=== PATIENT | male | born 1995 | race African-American/Black ===

== ENCOUNTER 2020-04-10 23:29 | Inpatient (IN) | payer MEDICAID, OTHER ==
[~2020-04-10] VITALS: Ht 172.7 cm; Wt 83.1 kg
[2020-04-10] MEDS ORDERED: PROMETHAZINE HCL 25 MG/ML 1ML IV ONE (23:45)
[2020-04-10] MEDS ORDERED: LORazepam 2MG/ML-1ML VIAL IV ONE (23:45)
[2020-04-10] MEDS ORDERED: SODIUM CHLORIDE 0.9% 1,000 ML IV ONE (23:45)
[2020-04-11 00:28] LABS: Basophils # (auto) 0.1 10 ^3/uL (0-0.2); Basophils % (auto) 0.3 % (0.0-2.0); Eosinophils # (auto) 0 10 ^3/uL (0-0.8); Eosinophils % (auto) 0.1 % (0.0-7.0); Hematocrit 49.4 % (41.0-53.0); Hemoglobin 15.8 g/dL (13.5-17.5); Lymphocytes # (auto) 0.8 10 ^3/uL (0.4-5.4); Lymphocytes % (auto) 3.9 % (10.0-50.0); Mean Corpuscular Hemoglobin 27.5 pg (28.0-32.0); Mean Corpuscular Hgb Conc. 31.9 g/dL (32.0-36.0); Mean Corpuscular Volume 86.2 fL (80.0-100.0); Monocytes # (auto) 1.5 10 ^3/uL (0-1.3); Neutrophils % (auto) 88.7 % (37.0-80.0); Nucleated Red Blood Cells % 0.1 %; Platelet Count (auto) 282 10^3/uL (140-450); Red Blood Cells 5.73 10^6/uL (4.5-5.90); Red Cell Distribution Width 14.2 % (11.8-14.3); White Blood Cell 21.5 10^3/uL (4.4-10.8)
[2020-04-11 00:46] LABS: Albumin 4.4 g/dL (3.4-5.0); BUN/Creatinine Ratio 10.2; Calcium 8.4 mg/dL (8.5-10.1); Potassium 4.1 mmol/L (3.5-5.1)
[2020-04-11 00:49] LABS: Bilirubin, Total 0.3 mg/dL (0.2-1.0); Total Protein 7.9 g/dL (6.4-8.2)
[2020-04-11] MEDS ORDERED: levETIRAcetam 500 MG/5ML INJ IV ONE (01:29)
[2020-04-11] MEDS ORDERED: LORazepam 2MG/ML-1ML VIAL ONE (03:05)
[2020-04-11] MEDS ORDERED: ACETAMINOPHEN 650 MG RECT SUPP PR ONE ×2 (03:15→10:00)
[2020-04-11] MEDS ORDERED: LORazepam 2MG/ML-1ML VIAL IV ONE ×2 (03:15→05:45)
[2020-04-11] MEDS ORDERED: VANCOMYCIN 1GM/250ML 250 ML IV ONE (03:30)
[2020-04-11] MEDS ORDERED: SODIUM CHLORIDE 0.9% 1,000 ML IV ONE (03:30)
[2020-04-11] MEDS ORDERED: PIPERACILLIN-TAZOB 3.375GM 100 ML IV ONE ×2 (03:30→13:30)
[2020-04-11 03:35] LABS: Urine Bacteria FEW /hpf (None Seen); Urine Blood 2+ /uL (Negative); Urine Hyaline Cast MOD /lpf (0 - 2); Urine Mucus FEW (None Seen); Urine Specific Gravity 1.011 (1.001-1.035); Urine Sperm PRESENT /hpf (None Seen); Urine WBC 1 /hpf (0 - 3)
[2020-04-11 03:41] LABS: Alcohol, Urine < 3.0 mg/dL (0-5); Amphetamine Screen, Urine NEGATIVE (NEGATIVE); Barbiturate Scree,Urine NEGATIVE (NEGATIVE); Benzodiazephine Screen, Urine NEGATIVE (NEGATIVE); Cannabinoid Screen, Urine POSITIVE (NEGATIVE); Cocaine Screen, Urine NEGATIVE (NEGATIVE); Opiate Scree,Urine NEGATIVE (NEGATIVE); Phencyclidine Screen, Urine NEGATIVE (NEGATIVE)
[2020-04-11] MEDS ORDERED: diphenhdrAMINE HCL 50 MG/1 ML VL IV ONE (05:30)
[2020-04-11] MEDS: SODIUM CHLORIDE 0.9% 1,000 ML IV SCH ×4 (06:09→23:46)
[2020-04-11] MEDS ORDERED: DOCUSATE SOD 100 MG CAP PO PRN (06:15)
[2020-04-11] MEDS ORDERED: MORPHINE SULF INJ 2 MG/ML SYRINGE 1ML IV PRN (06:45)
[2020-04-11] MEDS: ONDANSETRON HCL 4 MG/2 ML VIAL IV PRN (07:46)
[2020-04-11] MEDS ORDERED: LORazepam 2MG/ML-1ML VIAL IV PRN ×2 (08:45)
[2020-04-11] MEDS ORDERED: cefTRIAXone 1GM/50ML D5W 50 ML IV SCH (10:00)
--- NOTE | 2020-04-11 11:15 | NUR ---
ELECTROENCEPHALOGRAM EEG COMPLETED AT BEDSIDE. PRIMARY RN LILIANA PATTON.
[2020-04-11] MEDS ORDERED: AZITHROMYCIN 500MG/ 250ML 250 ML IV ONE (13:30)
--- NOTE | 2020-04-11 17:15 | NUR ---
Telemetry admit from ER LISBETWINDY admitted to Telemetry unit after SBAR received. Patient oriented to Samira Vaughn, RN primary RN, unit, room, bed, and unit policies regarding patient care and visiting hours. Patient now on continuous telemetry monitoring, tele box # 60 and telemetry reading on arrival to unit is sinus tach. Patient weighed by bedscale and encouraged to call if they need something. Seizure precautions are in place, upton catheter is hanging below bladder and is draining/patent clear yellow urine. Sitter present at bedside, bed is set in lowest locked position with side rails up x 2 for safety and call light is within reach. All questions and concerns addressed, patient verbalized understanding.
[2020-04-11 18:00] VITALS: BP 114/66
[2020-04-11 18:30] VITALS: BP 114/66
[2020-04-11] MEDS: PIPERACILLIN-TAZOB 3.375GM 100 ML IV SCH ×2 (18:46→23:46)
--- NOTE | 2020-04-11 19:25 | NUR ---
OPENING SHIFT NOTE Assumed care of patient who is A&O x4 at this time. Brand Strategy Manager questions appropriately, but delayed. Currently on RA with no s/s of distress. Reports "soreness" in legs and back. States, "it feels like I worked out, but i didn't". Patient does not assign a number according to the pain scale when asked. Pain management options discussed with patient. Tucker catheter in place and patent. Draining clear light yellow urine to gravity. IV in left EJ intact and patent. IV ABX currently infusing as ordered. POC discussed with patient who verbalizes understand, reinforcement will be required. Bed is in low locked position with side rails up x2. Side rails are padded for precaution due to seizure activity. Bed is in low locked position. Sitter is in room for safety. Will continue to monitor for changes PRN.
--- NOTE | 2020-04-11 21:35 | NUR ---
Patient reports feeling "dehydrated". Requests juice. Instructed patient on NPO status. Provided oral swabs to moisten mouth.
[2020-04-11 21:52] VITALS: BP 138/44
[2020-04-12] VITALS (7 sets, daily range): BP systolic 112–142; BP diastolic 42–77
--- NOTE | 2020-04-12 00:55 | NUR ---
FAMILY Spoke with patient's mother. Verified password, and updated on status. Patient's mother relays that patient is uncomfortable due to NPO status. He remains disoriented to the situation and does not recall experiencing any seizure activity or how he got to the hospital. Educated family and patient on the importance for NPO at this time and reoriented patient to the situation and POC. Verbalizes understanding.
--- NOTE | 2020-04-12 01:10 | NUR ---
SPECIMEN COLLECTION Sterile urine sample obtained from Tucker port. Swabbed bilateral nares for influenza A & B. Both samples sent to lab via [facility] system. Patient instructed on collecting a sputum sample and collection cup left at the bedside.
--- NOTE | 2020-04-12 01:13 | NUR ---
Patient states that he feels "dehydrated" and his mouth is dry. Provided with oral swabs to moisten mouth.
--- NOTE | 2020-04-12 02:40 | NUR ---
BOWEL MOVEMENT Assisted patient onto bedside commode. Gait is very unsteady and patient reports feeling dizzy and weak. Patient had a small loose BM with a greasy appearance. Patient assisted back into bed and bed alarm turned on for safety. Will continue to monitor for changes.
--- NOTE | 2020-04-12 02:55 | NUR ---
Hospitalist Per Hospitalist Mark Carter NP- MICHAEL for patient to have ice chips.
[2020-04-12] MEDS: HYDROcodone-ACET 5/325MG TAB PO PRN ×2 (03:13→10:07)
[2020-04-12 05:36] LABS: Basophils # (auto) 0.1 10 ^3/uL (0-0.2); Basophils % (auto) 0.5 % (0.0-2.0); Eosinophils # (auto) 0 10 ^3/uL (0-0.8); Hematocrit 44.8 % (41.0-53.0); Hemoglobin 14.6 g/dL (13.5-17.5); Lymphocytes # (auto) 1.2 10 ^3/uL (0.4-5.4); Lymphocytes % (auto) 7.4 % (10.0-50.0); Mean Corpuscular Hemoglobin 28.1 pg (28.0-32.0); Mean Corpuscular Hgb Conc. 32.7 g/dL (32.0-36.0); Monocytes # (auto) 1.4 10 ^3/uL (0-1.3); Monocytes % (auto) 8.4 % (0.0-12.0); Neutrophils % (auto) 83.7 % (37.0-80.0); Platelet Count (auto) 230 10^3/uL (140-450); Red Blood Cells 5.22 10^6/uL (4.5-5.90); Red Cell Distribution Width 14.2 % (11.8-14.3); White Blood Cell 16.8 10^3/uL (4.4-10.8)
[2020-04-12] MEDS: PIPERACILLIN-TAZOB 3.375GM 100 ML IV SCH ×2 (05:45→12:48)
[2020-04-12 05:47] LABS: Albumin 3.6 g/dL (3.4-5.0); Calcium 7.9 mg/dL (8.5-10.1); Magnesium 3.4 mg/dL (1.6-2.6)
[2020-04-12 05:51] LABS: BUN/Creatinine Ratio 6.7; Bilirubin, Total 0.9 mg/dL (0.2-1.0); Total Protein 6.7 g/dL (6.4-8.2)
--- NOTE | 2020-04-12 07:20 | NUR ---
Opening Shift Note Assumed care of patient, resting in bed with eyes closed. No S/S of distress/SOB or pain. Seizure precautions are in place, upton catheter is hanging below bladder and is draining clear yellow urine. Bed is set in lowest locked position with side rails up x 2 for safety and call light is within reach. Will continue to monitor for changes Q1hr and PRN.
[2020-04-12] MEDS: SODIUM CHLORIDE 0.9% 1,000 ML IV SCH ×2 (09:40→18:49)
[2020-04-12] MEDS ORDERED: AZITHROMYCIN 500MG/ 250ML 250 ML IV SCH (10:00)
[2020-04-12] MEDS: ONDANSETRON HCL 4 MG/2 ML VIAL IV PRN (10:42)
--- NOTE | 2020-04-12 11:45 | NUR ---
MD Good rounding at bedside
--- NOTE | 2020-04-12 15:10 | NUR ---
Patient is currently working with PT Ambulating in the hallway with FWW, patient tolerating session well, breaths are even and unlabored.
--- NOTE | 2020-04-12 17:40 | NUR ---
Urine sample sent to lab
[2020-04-12 17:54] LABS: BUN/Creatinine Ratio 7.2; Potassium 3.7 mmol/L (3.5-5.1)
[2020-04-12 18:38] LABS: Creatinine, Urine 68 mg/dL (30.0-125.0); Sodium Urine 43 mmol/L (40-220)
[2020-04-12] MEDS ORDERED: LORazepam 2MG/ML-1ML VIAL IV PRN (19:00)
--- NOTE | 2020-04-12 19:14 | NUR ---
Endorsed care to NOC RN.
--- NOTE | 2020-04-12 19:15 | NUR ---
OPENING SHIFT NOTE Assumed care of patient who is A&O x4. Currently on RA with no s/s of distress. Denies pain at this time. Reports mild nausea, instructed to notify if anti-nausea medication is needed. Verbalizes understanding. PIV in right hand is intact and patent. IVF infusing as ordered. Tucker catheter is in place and draining light paula, cloudy urine to gravity. Tubing is free from kinks and collection bag is hung below the level of the bladder. POC discussed. Bed is in low locked position with side rails up x2. Call light is within reach and patient encouraged to call for assistance when needed. Bed alarm is on for patient safety. Will continue to monitor for changes PRN.
--- NOTE | 2020-04-12 21:18 | NUR ---
BOWEL MOVEMENT Bed alarm activated. Patient sitting at edge of bed. Patient was incontinent of stool. Assisted onto bedside commode. Full linen eng provided and. Patient had medium liquid brown BM. Assisted back into bed and bed alarm turned on. Will continue to monitor for changes PRN.
[2020-04-12] MEDS ORDERED: MEROPENEM 1GM IVPB 100 ML IV SCH (22:00)
[2020-04-13] MEDS: HYDROcodone-ACET 5/325MG TAB PO PRN ×2 (01:37→22:30)
[2020-04-13 05:00] VITALS: BP 132/69
[2020-04-13] MEDS: ACETAMINOPHEN 325 MG TAB PO PRN (05:00)
--- NOTE | 2020-04-13 05:00 | NUR ---
ELEVATED TEMPERATURE Patient's temperature is 101.3. Blankets removed, and temperature in room lowered. Acetaminophen administered according to orders.
[2020-04-13] MEDS: SODIUM CHLORIDE 0.9% 1,000 ML IV SCH ×2 (05:30→15:37)
[2020-04-13 05:44] LABS: Basophils # (auto) 0.1 10 ^3/uL (0-0.2); Basophils % (auto) 0.8 % (0.0-2.0); Eosinophils # (auto) 0.1 10 ^3/uL (0-0.8); Eosinophils % (auto) 0.7 % (0.0-7.0); Hematocrit 45.7 % (41.0-53.0); Lymphocytes # (auto) 1.9 10 ^3/uL (0.4-5.4); Lymphocytes % (auto) 16.9 % (10.0-50.0); Mean Corpuscular Hemoglobin 28.2 pg (28.0-32.0); Mean Corpuscular Hgb Conc. 32.9 g/dL (32.0-36.0); Mean Corpuscular Volume 85.9 fL (80.0-100.0); Monocytes # (auto) 1.2 10 ^3/uL (0-1.3); Monocytes % (auto) 10.7 % (0.0-12.0); Neutrophils # (auto) 8.1 10 ^3/uL (1.6-8.6); Neutrophils % (auto) 70.9 % (37.0-80.0); Platelet Count (auto) 231 10^3/uL (140-450); Red Blood Cells 5.31 10^6/uL (4.5-5.90); Red Cell Distribution Width 14.6 % (11.8-14.3); White Blood Cell 11.5 10^3/uL (4.4-10.8)
[2020-04-13 06:03] LABS: Albumin 3.6 g/dL (3.4-5.0); Potassium 3.3 mmol/L (3.5-5.1)
[2020-04-13 06:08] LABS: BUN/Creatinine Ratio 5.4
--- NOTE | 2020-04-13 06:08 | NUR ---
Temperature reassessed Temp is now 99.7. [place] removed. Will continue to monitor.
--- NOTE | 2020-04-13 07:30 | NUR ---
Opening Shift Note Assumed care of patient, awake and alert. No S/S of distress/SOB or pain on room air. Instructed on POC and to call for assist PRN, will continue to monitor for changes Q1hr and PRN. Bed in low and locked position, rails up x2, no-slip socks on. Bed alarm on for safety, seizure precautions in place.
[2020-04-13 09:00] VITALS: BP 134/51
--- NOTE | 2020-04-13 09:05 | NUR ---
PHYSICAL THERAPY AT BEDSIDE PATIENT UP AMBULATING WITH FRONT WHEEL WALKER
--- NOTE | 2020-04-13 10:00 | NUR ---
UPTON CATHETER REMOVAL Order to discontinue upton catheter per nurse driven protocol. Upton dc'd with clean technique following deflation of balloon. Patient tolerated well with no complaints of pain. Continue care.
--- NOTE | 2020-04-13 10:05 | NUR ---
PATIENT OFF UNIT FOR PROCEDURE MRI
--- NOTE | 2020-04-13 10:35 | NUR ---
PATIENT BACK ON UNIT
--- NOTE | 2020-04-13 11:20 | NUR ---
DR JOHNSON AT BEDSIDE NEW ORDERS ADDED
--- NOTE | 2020-04-13 11:28 | NUR ---
DR STRONG AT BEDSIDE
[2020-04-13] MEDS: PANTOPRAZOLE 40 MG TAB PO SCH (11:30)
--- NOTE | 2020-04-13 12:07 | NUR ---
Est energy needs 6682-2198 kcal (20-25 kcal/kg ABW) Est protein needs 64-80g (0.8-1g/kg ABW). Will reassess prn. Addendum: 04/13/20 at [address] Amended: Links added.
[2020-04-13 12:34] LABS: Hepatitis B Surface Antibody Negative
[2020-04-13 13:00] VITALS: BP 154/43
[2020-04-13] MEDS: cefTRIAXone 1GM/50ML D5W 50 ML IV SCH (13:09)
[2020-04-13] MEDS: MAGIC MOUTHWASH 55 ML SUSP MT SCH ×3 (13:10→22:29)
[2020-04-13 13:12] LABS: Hepatitis A Total Antibody Positive
[2020-04-13 13:24] LABS: Hepatitis B Core Total AB Negative
[2020-04-13 13:25] LABS: Hepatitis B Surface Antigen Negative (Negative); Hepatitis C Antibody Negative (Negative)
--- NOTE | 2020-04-13 14:29 | NUR ---
INITIATE TELE PSYCH CONSULT AWAITING CALL BACK FROM
[2020-04-13] MEDS: metroNIDAZOLE 500MG/100ML 100 ML IV SCH ×2 (14:30→22:29)
--- NOTE | 2020-04-13 15:11 | NUR ---
assessment re: ss consult Patient is a 24 year old male who is answering appropriately. Patient seems slow in answering over the phone. Per patient Prior to admission patient lived home with family and functioned independently. Patient informed me he is able to care for his own ADLs. Per patient he will return home to his prior living arrangements post discharge and family will transport him home. Patient informed me he just moved to the area from [place]. Patients PCP is Dr Goncalves in [place]. Patient feels safe returning home on discharge. Patient has no post discharge needs identified at this time. I informed patient he has a right to speak to a pediatric social worker regarding all care. I informed patient he has a right to participate in any and all discharge planning. Patient does not have a POA and advanced directive. I have offered patient information on POA and advanced directives. I informed the patient the advantages and benefits of having an Advanced Directive. Patient verbalized understanding and agreed to discharge plan. Addendum: 04/13/20 at 1514 by Esthela HAM Amended: Links added.
--- NOTE | 2020-04-13 16:22 | NUR ---
STOOL SPECIMEN COLLECTED
[2020-04-13 17:00] VITALS: BP 143/65
--- NOTE | 2020-04-13 17:00 | NUR ---
WOUND CARE NOTE: WOUND CONSULT ORDERED FOR PATIENT D/T TONGUE BIGHT FOLLOWING A SEIZURE. MD HAS WRITTEN ORDERS FOR MAGIC MOUTHWASH TO THE TONGUE. NO OTHER WOUNDS NOTED. PATIENT HAS MARSHA SCORE OF 17. IMPLEMENTED SKIN/WOUND CARE PLAN FOR MARSHA SCORE BELOW 19. NO OTHER SKIN/WOUND ISSUES NOTED AT THIS TIME. RECOMMEND: MAGIC MOUTHWASH PER HOSPITALIST ORDERS, SKIN/WOUND CARE PLAN FOR LOW MARSHA SCORE UNDER 19. NO WOUND CARE MONITORING NEEDED.
--- NOTE | 2020-04-13 19:40 | NUR ---
Opening Shift Note Assumed care of patient, awake, AAOx4. No S/S of distress/SOB or pain. On room air, ambulatory to bedside commode. Seizure precautions in place. Bed in lowest locked position, side rails up x2, call light within reach. Instructed on POC and to call for assist PRN, will continue to monitor for changes Q1hr and PRN.
[2020-04-13 22:00] VITALS: BP 143/65
[2020-04-13] MEDS: DOXYCYCLINE 100 MG TAB/CAP PO SCH (22:30)
--- NOTE | 2020-04-13 23:45 | NUR ---
EKG CHANGE LUMP ROOM SUPERVISOR CALLED TO NOTIFY THIS RN OF PATIENT CHANGE IN EKG. ST ELEVATION NOTED. OBTAINED EKG, SHOWED SINUS EDY WITH HR OF 57, ST ELEVATION. PATIENT ASYMPTOMATIC, AAOX4 AND RESTING IN BED. WILL NOTIFY
[2020-04-14] MEDS: SODIUM CHLORIDE 0.9% 1,000 ML IV SCH ×2 (04:27→11:38)
[2020-04-14 05:00] VITALS: BP 146/58
[2020-04-14] MEDS: metroNIDAZOLE 500MG/100ML 100 ML IV SCH ×3 (06:16→22:12)
[2020-04-14] MEDS: MAGIC MOUTHWASH 55 ML SUSP MT SCH ×4 (06:16→22:12)
[2020-04-14 06:50] LABS: Basophils # (auto) 0.1 10 ^3/uL (0-0.2); Eosinophils # (auto) 0.1 10 ^3/uL (0-0.8); Eosinophils % (auto) 1.5 % (0.0-7.0); Hematocrit 42.5 % (41.0-53.0); Hemoglobin 14.3 g/dL (13.5-17.5); Lymphocytes # (auto) 1.7 10 ^3/uL (0.4-5.4); Lymphocytes % (auto) 20.1 % (10.0-50.0); Mean Corpuscular Hemoglobin 28.5 pg (28.0-32.0); Mean Corpuscular Hgb Conc. 33.6 g/dL (32.0-36.0); Mean Corpuscular Volume 84.8 fL (80.0-100.0); Monocytes % (auto) 12.2 % (0.0-12.0); Neutrophils # (auto) 5.5 10 ^3/uL (1.6-8.6); Neutrophils % (auto) 65.2 % (37.0-80.0); Nucleated Red Blood Cells % 0.1 %; Platelet Count (auto) 236 10^3/uL (140-450); Red Blood Cells 5.01 10^6/uL (4.5-5.90); Red Cell Distribution Width 14.2 % (11.8-14.3); White Blood Cell 8.4 10^3/uL (4.4-10.8)
[2020-04-14 07:02] LABS: Potassium 3.3 mmol/L (3.5-5.1)
[2020-04-14 07:07] LABS: Albumin 3.4 g/dL (3.4-5.0); BUN/Creatinine Ratio 4.9; Bilirubin, Total 0.8 mg/dL (0.2-1.0); Calcium 8.1 mg/dL (8.5-10.1); Magnesium 2.2 mg/dL (1.6-2.6); Total Protein 6.6 g/dL (6.4-8.2)
--- NOTE | 2020-04-14 07:30 | NUR ---
Opening Shift Note Assumed care of patient, awake and alert. No S/S of distress/SOB or pain on room air. Instructed on POC and to call for assist PRN, will continue to monitor for changes Q1hr and PRN. Bed in low and locked position, rails up x2, no-slip socks on.
[2020-04-14 09:38] VITALS: BP 136/53
--- NOTE | 2020-04-14 09:39 | NUR ---
IV removal/IV insertion IV DC'd with clean sterile technique, catheter fully intact. Pressure dressing applied to site. Patient tolerated well. IV access obtained, via clean sterile technique by inserting 22 gauge catheter at left forearm after 1 attempt. IV secured properly. No trauma to site. Patient tolerated well.
[2020-04-14] MEDS: PANTOPRAZOLE 40 MG TAB PO SCH (10:12)
[2020-04-14] MEDS: DOXYCYCLINE 100 MG TAB/CAP PO SCH ×2 (10:12→22:13)
[2020-04-14] MEDS: cefTRIAXone 1GM/50ML D5W 50 ML IV SCH (10:12)
--- NOTE | 2020-04-14 10:15 | NUR ---
DR STRONG AT BEDSIDE
--- NOTE | 2020-04-14 10:29 | NUR ---
I spoke with patient's nurse Raquel and provided her with outpatient psychiatry resource to give to patient-[facility] [address], [id number], phone [phone].
[2020-04-14] MEDS: ONDANSETRON HCL 4 MG/2 ML VIAL IV PRN (11:38)
[2020-04-14] MEDS ORDERED: POTASSIUM CHL 20 Meq TABLET PO ONE (11:45)
--- NOTE | 2020-04-14 12:04 | NUR ---
DR JOHNSON AT BEDSIDE NEW ORDERS ADDED, WILL CARRY OUT
[2020-04-14 13:00] VITALS: BP 106/54
[2020-04-14 16:42] VITALS: BP 133/55
--- NOTE | 2020-04-14 19:09 | NUR ---
SHIFT CHANGE ENDORSED CARE TO NOC SHIFT NURSE TYRELL
[2020-04-14 21:00] VITALS: BP 124/41
[2020-04-15] VITALS (7 sets, daily range): BP systolic 130–151; BP diastolic 48–86
[2020-04-15] MEDS: SODIUM CHLORIDE 0.9% 1,000 ML IV SCH ×3 (00:59→17:07)
[2020-04-15] MEDS: ACETAMINOPHEN 325 MG TAB PO PRN ×2 (03:18→15:33)
[2020-04-15] MEDS: metroNIDAZOLE 500MG/100ML 100 ML IV SCH ×2 (06:04→13:22)
[2020-04-15] MEDS: MAGIC MOUTHWASH 55 ML SUSP MT SCH ×3 (06:04→17:14)
[2020-04-15 07:30] LABS: INR 1.07 (0.9-1.15)
[2020-04-15 07:38] LABS: Calcium 7.8 mg/dL (8.5-10.1); Potassium 3.4 mmol/L (3.5-5.1)
--- NOTE | 2020-04-15 07:39 | NUR ---
Opening Note Assumed pt care from RIA RN. Pt is a/ox4 with no s/s of distress or SOB. Pt is currently sitting upright in bed with no complaints at this time. Discussed POC with pt; pt verbalized understanding. Discussed with pt the need to ambulate today since feelings of dizziness have resolved. Safety measures maintained with call light within reach, bed in lowest position and side rails up. Will continue to monitor.
[2020-04-15 07:44] LABS: BUN/Creatinine Ratio 5.6; Bilirubin, Total 0.8 mg/dL (0.2-1.0); Total Protein 6.1 g/dL (6.4-8.2)
[2020-04-15] MEDS: cefTRIAXone 1GM/50ML D5W 50 ML IV SCH (08:31)
[2020-04-15] MEDS: DOXYCYCLINE 100 MG TAB/CAP PO SCH (09:20)
[2020-04-15] MEDS: PANTOPRAZOLE 40 MG TAB PO SCH (09:20)
[2020-04-15] MEDS: ONDANSETRON HCL 4 MG/2 ML VIAL IV PRN ×2 (10:22→20:37)
[2020-04-15] MEDS: HYDROcodone-ACET 5/325MG TAB PO PRN (10:22)
--- NOTE | 2020-04-15 10:36 | NUR ---
Dr Mckinney at bedside MD to see pt. MD stated that he will place new orders. Will continue to monitor.
[2020-04-15] MEDS ORDERED: LOPERAMIDE 2 mg/15ml ORAL soln PO PRN (10:45)
--- NOTE | 2020-04-15 12:43 | NUR ---
Nutrition Followup Notes Wt: 82.4 kg Pt`s with MD at bedside. per records pt with Diarr and Cdiff neg. pt continues to be on clear liq diet with adequate PO of 100% x 3 per RN doc Est energy needs 7752-9975 kcal (20-25 kcal/kg ABW) Est protein needs 64-80g (0.8-1g/kg ABW). Will reassess prn. LABS: CA 7.8 L, ALB 3.0 L, AST/ALT 611/232 H GI: Pt had 1 BM on 04/12 per RN doc BS: 21 low risk. PES: Altered nutrition related lab values r.t current chronic medical condition aeb elev LFTs Inadequate PO intake r/t current medical condition aeb pt`s npo Comments: Monitor pertinent labs, PO intake and skin status prn. Will followup in 2-3 days Rec: 1) Continue to monitor skin, pertinent labs, and po intake. 2) Continue current plan of care. 3) advance diet when medically feasible
--- NOTE | 2020-04-15 17:29 | NUR ---
Dr. Blake at bedside. to see pt, discussed plan of care with pt, MD request change in medications, advance diet. Possible DC tomorrow. Will continue to monitor. Signed: 04/15/20 at 1736 by ALFONSO ISAAC <Co-Signature Required> Co-Signed: 04/15/20 at 1736 by ACOSTA FISHER RN RN
--- NOTE | 2020-04-15 20:15 | NUR ---
Opening Shift Note Assumed care of patient, awake and alert. No S/S of distress/SOB. Patient is on room air. Respirations even and unlabored. Patient reports 5/10 headache and nausea. Patient refuses pain medication for headache. Patient refuses heat or ice pack for headache. Patient states it comes and goes. Patient to be medicated with PRN medication available for nausea per MD order. Seizure precautions present at bedside: side rails padded and suction available with Norm at bedside. Instructed on POC and to call for assist PRN, will continue to monitor for changes Q1hr and PRN.
--- NOTE | 2020-04-15 21:49 | NUR ---
Temperature and BP reassessed. BP is 142/86, HR of 77. Temperature is 99.5 F. Cooling measures provided: ice packs placed underneath patient's armpits, blanket removed, and temperature lowered in room. Will continue to monitor.
--- NOTE | 2020-04-15 22:10 | NUR ---
Hospitalist paged regarding patient requesting pain medicine for 10/10 headache but no PRN medication available for severe pain 7-10 and patient requesting medicine for anxiety but no PRN medication available for anxiety. Awaiting callback at this time.
[2020-04-15] MEDS ORDERED: MORPHINE SULF INJ 2 MG/ML SYRINGE 1ML IV PRN (22:15)
--- NOTE | 2020-04-15 22:15 | NUR ---
Received callback from Dr. Barrett regarding patient requesting pain medicine for 10/10 headache but no PRN medication available for severe pain 7-10 and patient requesting medicine for anxiety but no PRN medication available for anxiety. New orders received: Morphine 2 mg IV Q4HR PRN for severe pain 7-10 and Ativan 1 mg PO Q4HR PRN for anxiety.
[2020-04-15] MEDS: LORazepam 0.5 MG TAB PO PRN (22:43)
--- NOTE | 2020-04-15 22:55 | NUR ---
Temperature reassessed and is 98.7 F.
[2020-04-16] MEDS: ACETAMINOPHEN 325 MG TAB PO PRN (03:01)
[2020-04-16] MEDS: LORazepam 0.5 MG TAB PO PRN ×2 (03:07→12:35)
[2020-04-16 05:17] VITALS: BP 141/80
--- NOTE | 2020-04-16 05:50 | NUR ---
Temperature reassessed and is 98.9 F. Patient asymptomatic.
--- NOTE | 2020-04-16 07:00 | NUR ---
CLOSING NOTE Patient is on room air. Respirations even and unlabored. Patient has no S/S of distress/SOB or pain. Seizure precautions present: side rails padded and suction at bedside with Norm. Bed alarm is on.
--- NOTE | 2020-04-16 07:41 | NUR ---
Opening Note Assumed pt care form NOC RN. Pt is a/ox4 with no s/s of distress or SOB. Pt is currently laying in bed with no complaints at this time. Discussed POC with pt; pt verbalized understanding. Safety measures maintained with call light within reach, bed in lowest position and side rails up. Will continue to monitor.
[2020-04-16] MEDS: PANTOPRAZOLE 40 MG TAB PO SCH (08:51)
[2020-04-16 09:00] VITALS: BP 131/59
--- NOTE | 2020-04-16 10:27 | NUR ---
Ambulation Pt able to ambulate with PT around unit multiple times without difficulty.
[2020-04-16 13:00] VITALS: BP 146/100
--- NOTE | 2020-04-16 15:51 | NUR ---
Dr Blake at Bedside MD to see pt. Discussed POC with pt and plans to d/c. MD spoke with family regarding POC.
[2020-04-16] MEDS ORDERED: CIPROFLOXACIN HCL 500 MG TAB PO ONE (16:00)
[2020-04-16 16:25] LABS: Basophils # (auto) 0.1 10 ^3/uL (0-0.2); Basophils % (auto) 0.7 % (0.0-2.0); Eosinophils # (auto) 0.4 10 ^3/uL (0-0.8); Eosinophils % (auto) 3.3 % (0.0-7.0); Hematocrit 47.8 % (41.0-53.0); Hemoglobin 15.8 g/dL (13.5-17.5); Lymphocytes # (auto) 2.3 10 ^3/uL (0.4-5.4); Lymphocytes % (auto) 20.7 % (10.0-50.0); Mean Corpuscular Hemoglobin 28.1 pg (28.0-32.0); Mean Corpuscular Hgb Conc. 33.2 g/dL (32.0-36.0); Mean Corpuscular Volume 84.7 fL (80.0-100.0); Monocytes # (auto) 0.8 10 ^3/uL (0-1.3); Monocytes % (auto) 7.6 % (0.0-12.0); Neutrophils # (auto) 7.4 10 ^3/uL (1.6-8.6); Neutrophils % (auto) 67.7 % (37.0-80.0); Nucleated Red Blood Cells % 0.1 %; Platelet Count (auto) 236 10^3/uL (140-450); Red Blood Cells 5.64 10^6/uL (4.5-5.90); Red Cell Distribution Width 14.1 % (11.8-14.3); White Blood Cell 10.9 10^3/uL (4.4-10.8)
[2020-04-16 16:44] LABS: Albumin 3.5 g/dL (3.4-5.0); BUN/Creatinine Ratio 7.9; Calcium 8.9 mg/dL (8.5-10.1); Potassium 3.6 mmol/L (3.5-5.1)
[2020-04-16 17:00] VITALS: BP 136/65
[2020-04-16 17:09] LABS: Bilirubin, Total 0.5 mg/dL (0.2-1.0); Total Protein 7.3 g/dL (6.4-8.2)
[2020-04-16] MEDS ORDERED: metroNIDAZOLE 500 MG TAB PO ONE (17:45)
[2020-04-16 18:36] VITALS: BP 146/100
--- NOTE | 2020-04-16 18:59 | NUR ---
IV and Tele 60 Removed IV to pt's L FA removed. Catheter was removed fully intact. Site is asymptomatic. Pressure was applied to site for 3 minutes with gauze and then wrapped in coban. Pt instructed to keep dressing on for 30 minutes; pt verbalized understanding. Tele 60 removed and sent back to ICU. Tele staff made aware.
[2020-04-16 20:00] VITALS: BP 125/81
--- NOTE | 2020-04-16 20:00 | NUR ---
Opening Shift Note Assumed care of patient, awake and alert. No S/S of distress/SOB or pain. Patient is on room air. Respirations even and unlabored. Seizure precautions present: side rails padded and suction at bedside with Norm. Instructed on POC and to call for assist PRN, will continue to monitor for changes Q1hr and PRN.
--- NOTE | 2020-04-16 20:53 | NUR ---
Patient discharged Patient discharged at this time. Patient taken to family members via wheelchair. Patient to be discharged home with family. Patient is on room air. Respirations even and unlabored. Patient has no S/S of distress/SOB or pain. All concerns addressed.
== END 2020-04-16 20:53 | disposition home or self-care (01) | DRG 249 ==
LOC: ER 23:29 → EDBD 23:29 → TELE 23:30 → TELE-WESTW 04-11 17:20
PROVIDERS: ADMIT Hospitalist; ATTEND Internal Medicine
DX: E86.0 Dehydration (principal); K52.9 Noninfective gastroenteritis and colitis, unspecified; N17.0 Acute kidney failure with tubular necrosis; M62.82 Rhabdomyolysis; R65.10 Systemic inflammatory response syndrome (SIRS) of non-infectious origin without acute organ dysfunction; G40.409 Other generalized epilepsy and epileptic syndromes, not intractable, without status epilepticus; Q85.01 Neurofibromatosis, type 1; G89.4 Chronic pain syndrome; I10 Essential (primary) hypertension; J45.909 Unspecified asthma, uncomplicated; F43.21 Adjustment disorder with depressed mood; K21.9 Gastro-esophageal reflux disease without esophagitis; K29.70 Gastritis, unspecified, without bleeding; Z82.49 Family history of ischemic heart disease and other diseases of the circulatory system; Z86.73 Personal history of transient ischemic attack (TIA), and cerebral infarction without residual deficits; Z83.3 Family history of diabetes mellitus; Z79.899 Other long term (current) drug therapy
CPT/HCPCS: 36415; 70450; 70551; 71045; 71046; 76700; 80048; 80053; 80185; 80307; 81001; 82550; 82570; 82962; 83036; 83605; 83735; 83935; 84300; 84439; 84443; 85025; 85610; 86704; 86706; 86708; 86709; 86803; 87040; 87045; 87086; 87340; 87427; 87493; 87804; 95819; 97116; 97530; G0378; J0696; J2185; J2405; J2543; J3490; J7060

== ENCOUNTER 2020-09-01 14:10 | Inpatient (IN) | payer MEDICAID ==
[~2020-09-01] VITALS: Ht 177.8 cm; Wt 82.5 kg
[2020-09-01] MEDS ORDERED: SODIUM CHLORIDE 0.9% 1,000 ML IV ONE ×3 (14:30→17:45)
[2020-09-01] MEDS ORDERED: LORazepam 2MG/ML-1ML VIAL IV ONE (14:30)
[2020-09-01] MEDS ORDERED: LORazepam 2MG/ML-1ML VIAL ONE (15:01)
[2020-09-01 15:09] LABS: Basophils # (auto) 0.1 10 ^3/uL (0-0.2); Basophils % (auto) 1.3 % (0.0-2.0); Eosinophils # (auto) 0.2 10 ^3/uL (0-0.8); Eosinophils % (auto) 2.4 % (0.0-7.0); Hematocrit 47.8 % (41.0-53.0); Hemoglobin 15.4 g/dL (13.5-17.5); Lymphocytes # (auto) 1.3 10 ^3/uL (0.4-5.4); Lymphocytes % (auto) 20.1 % (10.0-50.0); Mean Corpuscular Hgb Conc. 32.2 g/dL (32.0-36.0); Mean Corpuscular Volume 87.1 fL (80.0-100.0); Monocytes # (auto) 0.5 10 ^3/uL (0-1.3); Monocytes % (auto) 7.3 % (0.0-12.0); Neutrophils # (auto) 4.5 10 ^3/uL (1.6-8.6); Neutrophils % (auto) 68.9 % (37.0-80.0); Nucleated Red Blood Cells % 0.1 %; Platelet Count (auto) 232 10^3/uL (140-450); Red Blood Cells 5.49 10^6/uL (4.5-5.90); Red Cell Distribution Width 14.1 % (11.8-14.3); White Blood Cell 6.5 10^3/uL (4.4-10.8)
[2020-09-01 15:27] LABS: Albumin 4.2 g/dL (3.4-5.0); BUN/Creatinine Ratio 9.3; Calcium 8.8 mg/dL (8.5-10.1); Potassium 3.8 mmol/L (3.5-5.1)
[2020-09-01 15:29] LABS: Bilirubin, Total 0.6 mg/dL (0.2-1.0); Total Protein 7.5 g/dL (6.4-8.2)
[2020-09-01] MEDS ORDERED: ONDANSETRON HCL 4 MG/2 ML VIAL IV ONE (16:15)
[2020-09-01] MEDS ORDERED: LORazepam 2MG/ML-1ML VIAL IV PRN (17:45)
[2020-09-01] MEDS ORDERED: ACETAMINOPHEN 325 MG TAB PO PRN (17:45)
[2020-09-01 19:31] LABS: Urine Bacteria NONE SEEN /hpf (None Seen); Urine Blood 1+ /uL (Negative); Urine Mucus FEW (None Seen); Urine Specific Gravity 1.016 (1.001-1.035); Urine WBC 10 /hpf (0 - 3)
[2020-09-01 19:43] LABS: Alcohol, Urine < 3.0 mg/dL (0-10); Amphetamine Screen, Urine NEGATIVE (NEGATIVE); Barbiturate Scree,Urine NEGATIVE (NEGATIVE); Benzodiazephine Screen, Urine NEGATIVE (NEGATIVE); Cannabinoid Screen, Urine POSITIVE (NEGATIVE); Cocaine Screen, Urine NEGATIVE (NEGATIVE); Opiate Scree,Urine NEGATIVE (NEGATIVE); Phencyclidine Screen, Urine NEGATIVE (NEGATIVE)
[2020-09-01 20:20] VITALS: BP 122/46
[2020-09-01] MEDS: HYDROcodone-ACET 5/325MG TAB PO PRN (22:49)
[2020-09-01 22:57] VITALS: BP 122/46
[2020-09-01] MEDS: ONDANSETRON HCL 4 MG/2 ML VIAL IV PRN (23:03)
[2020-09-02 06:24] VITALS: BP 130/81
[2020-09-02 07:16] LABS: Basophils # (auto) 0.1 10 ^3/uL (0-0.2); Basophils % (auto) 0.6 % (0.0-2.0); Eosinophils # (auto) 0.1 10 ^3/uL (0-0.8); Eosinophils % (auto) 1.2 % (0.0-7.0); Hematocrit 43.3 % (41.0-53.0); Hemoglobin 14.3 g/dL (13.5-17.5); Lymphocytes # (auto) 1.6 10 ^3/uL (0.4-5.4); Lymphocytes % (auto) 14.7 % (10.0-50.0); Mean Corpuscular Hemoglobin 28.2 pg (28.0-32.0); Mean Corpuscular Hgb Conc. 32.9 g/dL (32.0-36.0); Mean Corpuscular Volume 85.5 fL (80.0-100.0); Monocytes # (auto) 1.3 10 ^3/uL (0-1.3); Monocytes % (auto) 11.5 % (0.0-12.0); Neutrophils # (auto) 7.9 10 ^3/uL (1.6-8.6); Platelet Count (auto) 222 10^3/uL (140-450); Red Blood Cells 5.06 10^6/uL (4.5-5.90); Red Cell Distribution Width 13.9 % (11.8-14.3)
[2020-09-02 07:34] LABS: Potassium 3.4 mmol/L (3.5-5.1)
[2020-09-02 07:36] LABS: BUN/Creatinine Ratio 8.5
[2020-09-02 08:44] VITALS: BP 136/89
[2020-09-02] MEDS ORDERED: PANTOPRAZOLE 40 MG TAB PO SCH (10:00)
[2020-09-02] MEDS: HYDROcodone-ACET 5/325MG TAB PO PRN (10:51)
[2020-09-02] MEDS ORDERED: POTASSIUM EFFERVESENT TAB 25 MEQ PO ONE (12:15)
[2020-09-02] MEDS ORDERED: LEVE100012 PO (12:25)
[2020-09-02 12:51] VITALS: BP 120/76
[2020-09-02] MEDS: ONDANSETRON HCL 4 MG/2 ML VIAL IV PRN (12:54)
[2020-09-02 16:31] VITALS: BP 127/73
== END 2020-09-02 18:50 | disposition home or self-care (01) | DRG 53 ==
LOC: ER 14:10 → EDBD 14:10 → TELE 14:11 → TELE-WESTW 20:10
PROVIDERS: ADMIT Internal Medicine; ATTEND Internal Medicine
DX: G40.409 Other generalized epilepsy and epileptic syndromes, not intractable, without status epilepticus (principal); Q85.00 Neurofibromatosis, unspecified; G89.4 Chronic pain syndrome; E87.6 Hypokalemia; D72.829 Elevated white blood cell count, unspecified; N17.9 Acute kidney failure, unspecified; F12.90 Cannabis use, unspecified, uncomplicated
CPT/HCPCS: 36415; 70450; 70551; 71045; 80048; 80053; 80307; 81001; 85025; 95819; 96361; 96365; 96375; G0378; J2405; J7060

== ENCOUNTER 2021-07-05 22:47 | Emergency (ER) | payer MEDICAID ==
[~2021-07-05] VITALS: Ht 177.8 cm; Wt 77.1 kg
[~2021-07-05 22:47] MED LIST: LEVE100012 PO
[2021-07-06] MEDS ORDERED: levETIRAcetam 500 MG TAB PO ONE (02:45)
[2021-07-06 06:29] VITALS: BP 127/48
== END 2021-07-06 06:33 | disposition home or self-care (01) ==
LOC: ER 22:47
DX: G40.909 Epilepsy, unspecified, not intractable, without status epilepticus (principal); Z76.0 Encounter for issue of repeat prescription
CPT/HCPCS: 82542